=== PATIENT | male | born 2000 | race Two or more races ===

== ENCOUNTER 2020-05-24 19:40 | Emergency (ER) | payer MEDICAID ==
[~2020-05-24] VITALS: Ht 167.6 cm; Wt 88.9 kg
[2020-05-24 19:45] VITALS: Ht 167.6 cm; Wt 88.9 kg
[2020-05-24 20:55] VITALS: BP 131/78
== END 2020-05-24 20:55 | disposition home or self-care (01) ==
LOC: ED 19:40
DX: F41.1 Generalized anxiety disorder (principal); Z20.828 Contact with and (suspected) exposure to other viral communicable diseases
CPT/HCPCS: U0003-CS